=== PATIENT | female | born 1960 | race Caucasian/White ===

== ENCOUNTER → 2019-01-29 | Outpatient (CLI) | payer OTHER ==
--- NOTE | 2019-01-29 11:52 | BD ---
EXAMINATION TYPE: Axial Bone Density DATE OF EXAM: 01/29/2019 COMPARISON: 2016 CLINICAL HISTORY: disorder of bone Height: 5' Weight: 109 FRAX RISK QUESTIONS: Secondary Osteoporosis: RISK FACTORS HISTORY OF: Diet low in dairy products/other sources of calcium: y Postmenopausal woman: y MEDICATIONS: Additional Medications: blood pressure Additional History: EXAM MEASUREMENTS: Bone mineral densitometry was performed using the [employer] System. Bone mineral density as measured about the Lumbar spine is: ----- L1-L4(G/cm2): 1.116 T Score Values are as follows: ----- L2: -0.8 ----- L3: -0.5 ----- L4: -0.5 ----- L1-L4:-0.5 Bone mineral density has: Decreased -7.7since study of: 07/05/2016 Bone mineral density about the R hip (g/cm2): 0.843 Bone mineral density about the L hip (g/cm2): 0.864 T Score values are as follows: -----R Neck: -1.4 -----L Neck: -1.3 -----R Total: -0.3 -----L Total: -0.3 Bone mineral density has: Decreased -0.2since studyof: 07/05/2016 IMPRESSION: Osteopenia (T Score between -2.5 and -1). There is slightly increased risk of fracture and the patient may be considered for treatment. Re-Screen 2-5 years. NOTE: T-SCORE=SD OF THE YOUNG ADULT MEAN.
--- NOTE | 2019-01-31 11:14 | MM ---
Reason for exam: screening (asymptomatic). Last mammogram was performed 1 year and 5 months ago. History: Patient is postmenopausal. Physical Findings: A clinical breast exam by your physician is recommended on an annual basis and results should be correlated with mammographic findings. MG Screening Mammo w CAD Bilateral CC and MLO view(s) were taken. Prior study comparison: August 18, 2017, bilateral MG screening mammo w CAD. July 05, 2016, bilateral MG screening mammo w CAD. The breast tissue is heterogeneously dense. This may lower the sensitivity of mammography. No suspicious abnormality. No significant changes when compared with prior studies. ASSESSMENT: Negative, BI-RAD 1 RECOMMENDATION: Routine screening mammogram of both breasts in 1 year.
== END | disposition home or self-care (01) ==
LOC: RADBDWWP 10:24
PROVIDERS: ATTEND Obstetrics & Gynecology
DX: Z12.31 Encounter for screening mammogram for malignant neoplasm of breast (principal); M85.851 Other specified disorders of bone density and structure, right thigh; M85.852 Other specified disorders of bone density and structure, left thigh
CPT/HCPCS: 77067; 77080

== ENCOUNTER → 2021-06-17 | Outpatient (CLI) | payer OTHER ==
--- NOTE | 2021-06-18 08:55 | BD ---
EXAMINATION TYPE: Axial Bone Density DATE OF EXAM: 06/17/2021 COMPARISON: 01/29/2019 CLINICAL HISTORY: 61-year-old female with disorder of bone, M85.80 Height: 60 IN Weight: 107 LBS RISK FACTORS HISTORY OF: Active: YES Diet low in dairy products/other sources of calcium: YES Postmenopausal woman: AGE 49 MEDICATIONS: Additional Medications: CALCIUM, VIT D, BLOOD PRESSURE MEDS EXAM MEASUREMENTS: Bone mineral densitometry was performed using the [employer] System. Bone mineral density as measured about the Lumbar spine is: ----- L1-L4(G/cm2): 1.095 T Score Values are as follows: ----- L2: -1.3 ----- L3: -0.7 ----- L4: -0.5 ----- L1-L4: -0.7 Bone mineral density has: Decreased -2.3% since study of: 01/29/2019 Bone mineral density about the R hip (g/cm2): 0.833 Bone mineral density about the L hip (g/cm2): 0.855 T Score values are as follows: -----R Neck: -1.5 -----L Neck: -1.3 -----R Total: -0.6 -----L Total: -0.6 Bone mineral density has: Decreased -3.5% since study of: 01/29/2019 IMPRESSION: Osteopenia (T Score between -2.5 and -1). There is slightly increased risk of fracture and the patient may be considered for treatment. Re-Screen 2-5 years. NOTE: T-SCORE=SD OF THE YOUNG ADULT MEAN.
== END | disposition home or self-care (01) ==
LOC: RADBDWWP 09:14
PROVIDERS: ATTEND Obstetrics & Gynecology
DX: Z13.820 Encounter for screening for osteoporosis (principal); M85.89 Other specified disorders of bone density and structure, multiple sites
CPT/HCPCS: 77080

== ENCOUNTER → 2021-06-30 | Outpatient (CLI) | payer OTHER ==
--- NOTE | 2021-07-01 09:10 | MM ---
Reason for exam: screening (asymptomatic). Last mammogram was performed 2 years and 5 months ago. History: Patient is postmenopausal. Physical Findings: A clinical breast exam by your physician is recommended on an annual basis and results should be correlated with mammographic findings. MG Screening Mammo w CAD Bilateral CC and MLO view(s) were taken. Prior study comparison: January 29, 2019, bilateral MG screening mammo w CAD. August 18, 2017, bilateral MG screening mammo w CAD. The breast tissue is heterogeneously dense. This may lower the sensitivity of mammography. There is no discrete abnormality. No significant changes when compared with prior studies. ASSESSMENT: Negative, BI-RAD 1 RECOMMENDATION: Routine screening mammogram of both breasts in 1 year.
== END | disposition home or self-care (01) ==
LOC: RADMAMWWP 07:16
PROVIDERS: ATTEND Family Medicine
DX: Z12.31 Encounter for screening mammogram for malignant neoplasm of breast (principal); Z78.0 Asymptomatic menopausal state
CPT/HCPCS: 77067

== ENCOUNTER → 2023-03-02 | Outpatient (CLI) | payer OTHER ==
--- NOTE | 2023-03-02 11:36 | XR ---
EXAMINATION TYPE: XR shoulder complete LT DATE OF EXAM: 03/02/2023 COMPARISON: NONE HISTORY: Pain TECHNIQUE: Shoulder examined in 3 projections. FINDINGS: The humeral head articulates with the glenoid. The acromio-clavicular junction is normal. No acute fractures or dislocations are evident. A follow up study can be performed 7-10 days from acute trauma for continued pain. MRI can be perfor med if soft tissue evaluation would be of benefit. IMPRESSION: 1. No acute osseous shoulder abnormality.
== END | disposition home or self-care (01) ==
LOC: RADXRMAIN 09:11
PROVIDERS: ATTEND Family Medicine
DX: S46.912A Strain of unspecified muscle, fascia and tendon at shoulder and upper arm level, left arm, initial encounter (principal); X58.XXXA Exposure to other specified factors, initial encounter

== ENCOUNTER 2023-03-09 06:24 | Observation (INO) | payer OTHER ==
[2023-03-09 06:32] VITALS: TEMP 97.6
[2023-03-09] MEDS ORDERED: ASPIRIN 81 MG PO STA (06:46)
--- NOTE | 2023-03-09 06:49 | ED ---
Chest Pain HPI - General Chief Complaint: Chest Pain Stated Complaint: arm pain,chest pain Time Seen by Provider: 03/09/23 06:34 Source: patient, RN notes reviewed Mode of arrival: ambulatory Limitations: no limitations - History of Present Illness Initial Comments: 63-year-old female presents emergency Department with chief complaint of chest pain. Patient states that she started having chest discomfort this morning substernal pain and left arm discomfort. She does admit that she had a fall while back and states that she's been having shoulder pain but this pain or arm is different. Patient is again radiates up. She does have a history of hypertension her blood pressures been higher than usual. Patient denies any other cardiac disease including hyperlipidemia and diabetes denies being a smoker no prior stress test or heart cath. Patient has no abdominal complaints or recent cough or cold-like symptoms. - Related Data Home Medications Medication Instructions Recorded Confirmed Aspirin/Acetaminophen/Caffeine 1 each PO Q6H 01/06/16 01/06/16 [Excedrin Extra Strength Caplet] Cholecalciferol (Vitamin D3) 5,000 units PO QAM 01/06/16 01/06/16 [Vitamin D3] Flaxseed [Flaxseed Oil] 1,300 mg PO QAM 01/06/16 01/06/16 Irbesartan [Avapro] 150 mg PO QAM 01/06/16 01/09/16 Multivitamins, Thera [Multivitamin] 1 tab PO DAILY 01/06/16 01/06/16 Allergies Allergy/AdvReac Type Severity Reaction Status Date / Time No Known Allergies Allergy Verified 01/06/16 14:27 Review of Systems ROS Statement: Those systems with pertinent positive or pertinent negative responses have been documented in the HPI. ROS Other: All systems not noted in ROS Statement are negative. EKG Findings - EKG Comments: EKG Findings:: EKG performed at 6:39 sinus rhythm rate of 75 NM 156 QRS 84 QT/QTC 381/410 - EKG Results: EKG: interpreted by WOJCIECH Past Medical History Past Medical History: Hypertension History of Any Multi-Drug Resistant Organisms: None Reported Past Surgical History: No Surgical Hx Reported Past Anesthesia/Blood Transfusion Reactions: No Reported Reaction Additional Past Anesthesia/Blood Transfusion Reaction / Comment(s): no hx of anesthesia or blood transfusions Past Psychological History: No Psychological Hx Reported Smoking Status: Former smoker Past Alcohol Use History: Rare Past Drug Use History: None Reported - Past Family History Mother Family Medical History: Hypertension Father Family Medical History: Cancer Additional Family Medical History / Comment(s): ca: esophagus General Exam Limitations: no limitations General appearance: alert, in no apparent distress Head exam: Present: atraumatic, normocephalic, normal inspection Eye exam: Present: normal appearance, PERRL, EOMI. Absent: scleral icterus, conjunctival injection, periorbital swelling Neck exam: Present: normal inspection, full ROM. Absent: tenderness, meningismus, lymphadenopathy Respiratory exam: Present: normal lung sounds bilaterally. Absent: respiratory distress, wheezes, rales, rhonchi, stridor Cardiovascular Exam: Present: regular rate, normal rhythm, normal heart sounds. Absent: systolic murmur, diastolic murmur, rubs, gallop, clicks GI/Abdominal exam: Present: soft, normal bowel sounds. Absent: distended, tenderness, guarding, rebound, rigid Extremities exam: Present: full ROM. Absent: tenderness Neurological exam: Present: alert Skin exam: Present: warm, dry, intact, normal color. Absent: rash Course Vital Signs 03/09/23 06:28 Temperature 97.6 F Pulse Rate 83 Respiratory 18 Rate Blood Pressure 188/94 O2 Sat by Pulse 98 Oximetry Chest Pain MDM - MDM Was pt. sent in by a medical professional or institution (JETHRO Beltre, AQUATICS DIRECTOR, urgent care, hospital, or prison...) When possible be specific @ -No Did you speak to anyone other than the patient for history (EMS, parent, family, police, friend...)? What history was obtained from this source @ -No Did you review nursing and triage notes (agree or disagree)? Why? @ -I reviewed and agree with nursing and triage notes Were old charts reviewed (outside hosp., previous admission, EMS record, old EKG, old radiological studies, urgent care reports/EKG's, prison records)? Report findings @ -No old charts were reviewed Differential Diagnosis (chest pain, altered mental status, abdominal pain women, abdominal pain men, vaginal bleeding, weakness, fever, dyspnea, syncope, headache, dizziness, GI bleed, back pain, seizure, CVA, palpatations, mental health, musculoskeletal)? @ -Differential Chest Pain: Stable Angina, Unstable Angina, STEMI, NSTEMI Aortic Dissection, Pneumothorax, Musculoskeletal, Esophageal Spasm GERD, Cholecystitis, Pancreatitis, Zoster, this is not meant to be an all-inclusive list. ] EKG interpreted by me (3pts min.). @ -As above X-rays interpreted by me (1pt min.). @ -Chest x-ray shows no acute cardiopulmonary process CT interpreted by me (1pt min.). @ -None done U/S interpreted by me (1pt. min.). @ -None done What testing was considered but not performed or refused? (CT, X-rays, U/S, labs)? Why? @ -None What meds were considered but not given or refused? Why? @ -None Did you discuss the management of the patient with other professionals (professionals i.e. , PA, AQUATICS DIRECTOR, lab, RT, psych nurse, social and political studies professor, plywood stock grader, teacher, campus safety officer, case management manager)? Give summary @ -Hospitalist for admission given patient's symptoms of chest pain for further workup and evaluation along with cardiology Was smoking cessation discussed for >3mins.? @ -No Was critical care preformed (if so, how long)? @ -No Were there social determinants of health that impacted care today? How? (Homelessness, low income, unemployed, alcoholism, drug addiction, transportation, low edu. Level, literacy, decrease access to med. care, alf, rehab)? @ -No Was there de-escalation of care discussed even if they declined (Discuss DNR or withdrawal of care, Hospice)? DNR status @ -No What co-morbidities impacted this encounter? (DM, HTN, Smoking, COPD, CAD, Cancer, CVA, ARF, Chemo, Hep., AIDS, mental health diagnosis, sleep apnea, morbid obesity)? @ -Hypertension Was patient admitted / discharged? Hospital course, mention meds given and route, prescriptions, significant lab abnormalities, going to OR and other pertinent info. @ -Admitted patient has substernal chest pain with multiple risk factors with hypertension, history. Patient will be admitted for cardiac rule out including echocardiogram Undiagnosed new problem with uncertain prognosis? @ -No Drug Therapy requiring intensive monitoring for toxicity (Heparin, Nitro, Insulin, Cardizem)? @ -No Were any procedures done? @ -No Diagnosis/symptom? @ -Chest pain Acute, or Chronic, or Acute on Chronic? @ -Acute Uncomplicated (without systemic symptoms) or Complicated (systemic symptoms)? @ -Uncomplicated Side effects of treatment? @ -No Exacerbation, Progression, or Severe Exacerbation? @ -No Poses a threat to life or bodily function? How? (Chest pain, USA, NM, pneumonia, PE, COPD, DKA, ARF, appy, cholecystitis, CVA, Diverticulitis, Homicidal, Suicidal, threat to staff... and all critical care pts) @ -[Yes patient has chest pain at risk for cardiac arrest Disposition Clinical Impression: Chest pain Disposition: ADMITTED IP TO THIS HOSP Condition: Fair Referrals: Vincenzo Underwood DO [Primary Care Provider] - 1-2 days Time of Disposition: 07:55
[2023-03-09 07:07] LABS: Basophils % (A) 0 %; Eosinophils # (A) 0.2 k/uL (0-0.7); Eosinophils % (A) 2 %; HCT 41.4 % (34.0-46.0); HGB 14.1 gm/dL (11.4-16.0); Lymphocytes # (A) 1.5 k/uL (1.0-4.8); Lymphocytes % (A) 14 %; MCH 33.1 pg (25.0-35.0); MCV 97.2 fL (80.0-100.0); Mean Platelet Volume 7.8; Monocytes # (A) 0.5 k/uL (0-1.0); Monocytes % (A) 4 %; Neutrophils # (A) 8.2 k/uL (1.3-7.7); Neutrophils % (A) 78 %; Platelet Count 291 k/uL (150-450); RBC 4.26 m/uL (3.80-5.40); RDW 12.4 % (11.5-15.5); WBC 10.6 k/uL (3.8-10.6)
[2023-03-09 07:18] LABS: ALT 26 U/L (4-34); AST 32 U/L (14-36); African American GFR (CKD) >90 (>60 ml/min/1.73 sqM); Albumin 4.7 g/dL (3.5-5.0); Alkaline Phosphatase 79 U/L (38-126); Anion Gap 10 mmol/L; Blood Urea Nitrogen 19 mg/dL (7-17); Calcium 9.7 mg/dL (8.4-10.2); Carbon Dioxide 29 mmol/L (22-30); Chloride 102 mmol/L (98-107); Glucose 116 mg/dL (74-99); Magnesium 1.9 mg/dL (1.6-2.3); Non-African American GFR(CKD) >90 (>60 ml/min/1.73 sqM); Potassium 4.1 mmol/L (3.5-5.1); Sodium 141 mmol/L (137-145); Total Bilirubin 0.3 mg/dL (0.2-1.3); Total Protein 7.6 g/dL (6.3-8.2)
[2023-03-09 07:29] LABS: INR 0.9 (<1.2)
--- NOTE | 2023-03-09 07:30 | XR ---
EXAMINATION TYPE: XR chest 2V DATE OF EXAM: 03/09/2023 7:23 AM COMPARISON: Chest radiographs from none TECHNIQUE: XR chest 2V Frontal and lateral views of the chest. CLINICAL INDICATION:Female, 63 years old with history of Chest Pain; FINDINGS: Lungs/Pleura: There is no evidence of pleural effusion, focal consolidation, or pneumothorax. Pulmonary vascularity: Unremarkable. Heart/mediastinum: Cardiomediastinal silhouette is unremarkable. Musculoskeletal: No acute osseous pathology. IMPRESSION: No acute cardiopulmonary disease/process.
[2023-03-09] MEDS ORDERED: NITROGLYCERIN SL TABS 0.4 MG TAB SUBLINGUAL PRN (08:08)
[2023-03-09] MEDS ORDERED: CHOLECALCIFEROL 125 MCG (5000 IU) TABLET PO SCH (09:00)
[2023-03-09] MEDS ORDERED: ASCORBIC ACID 500 MG TAB PO SCH (09:00)
[2023-03-09] MEDS ORDERED: MULTIVITAMINS, THERA 1 EACH TAB PO SCH (09:00)
[2023-03-09] MEDS: lisinopriL 10 MG TAB PO SCH ×2 (09:04→09:10)
[2023-03-09] MEDS ORDERED: lisinopriL 10 MG TAB PO STA (10:58)
--- NOTE | 2023-03-09 12:37 | CA ---
Transthoracic Echo Report Name: Mary Ellen Levy Age: 63 Gender: F : 1960 Exam Date: 03/09/2023 09:45 Exam Location: [facility] Ht (in): 60 Wt (lb): 104 Ordering Physician: Jeff Ball Attending/Referring Phys: [id number], [employer] President Ibeth Hickman RDCS Procedure CPT: Indications: Chest Pain Cardiac Hx: Technical Quality: Good Contrast 1: Total Dose (mL): Contrast 2: Total Dose (mL): MEASUREMENTS (Male / Female) Normal Values 2D ECHO LV Diastolic Diameter PLAX 3.7 cm 4.2 - 5.9 / 3.9 - 5.3 cm LV Systolic Diameter PLAX 2.6 cm IVS Diastolic Thickness 0.9 cm 0.6 - 1.0 / 0.6 - 0.9 cm LVPW Diastolic Thickness 0.8 cm 0.6 - 1.0 / 0.6 - 0.9 cm LV Relative Wall Thickness 0.5 RV Internal Dim ED PLAX 2.3 cm LA Systolic Diameter LX 2.7 cm 3.0 - 4.0 / 2.7 - 3.8 cm LV Diastolic Volume MOD 4C 58.4 cm??? LV Systolic Volume MOD 4C 27.7 cm??? LV Ejection Fraction MOD 4C 52.5 % LV Diastolic Length 4C 7.2 cm LV Systolic Length 4C 5.6 cm LV Diastolic Volume MOD 2C 43.3 cm??? LV Systolic Volume MOD 2C 11.7 cm??? LV Ejection Fraction MOD 2C 73.0 % LV Diastolic Length 2C 6.7 cm LV Systolic Length 2C 5.0 cm LA Volume 28.8 cm??? 18 - 58 / 22 - 52 cm??? M-MODE Aortic Root Diameter MM 2.7 cm MV E Point Septal Separation 0.2 cm AV Cusp Separation MM 1.7 cm DOPPLER AV Peak Velocity 151.3 cm/s AV Peak Gradient 9.2 mmHg MV Area PHT 2.7 cm??? Mitral E Point Velocity 100.9 cm/s Mitral A Point Velocity 90.7 cm/s Mitral E to A Ratio 1.1 MV Deceleration Time 284.8 ms MV E' Velocity 9.1 cm/s Mitral E to MV E' Ratio 11.1 TR Peak Velocity 266.8 cm/s TR Peak Gradient 28.5 mmHg Right Ventricular Systolic Press 33.5 mmHg FINDINGS Left Ventricle Left ventricular ejection fraction is estimated at 55-60 %. Small left ventricular cavity. Left ventricular wall thickness normal. No obvious regional wall motion abnormalities. Right Ventricle Normal right ventricular size and function. Right ventricular systolic pressure is borderline . Right ventricular systolic pressure estimated at 34 mm hg. Right Atrium Normal right atrial size. Left Atrium Normal left atrial size. Mitral Valve Structurally normal mitral valve. No mitral stenosis, regurgitation or prolapse. Aortic Valve Trileaflet aortic valve. No aortic valve stenosis or regurgitation. Tricuspid Valve Structurally normal tricuspid valve. Trace to mild tricuspid regurgitation. Pulmonic Valve Structurally normal pulmonic valve. No pulmonic regurgitation. Pericardium Normal pericardium. No pericardial effusion. Aorta Normal size aortic root and proximal ascending aorta. CONCLUSIONS Normal LV size and systolic function. No significant abnormality on the Doppler exam. No pericardial effusion Previewed by: Dr. Nery Cervantes MD (Electronically Signed) Final Date: 09 Mar 2023 12:36
--- NOTE | 2023-03-09 13:35 | P.CRDCN ---
History of Present Illness Consult date: 03/09/23 Consult reason: chest pain History of present illness: History of present illness: This is a 63-year-old female patient with past medical history of hypertension, remote history of tobacco use. We have been asked to evaluate the patient for chest pain. Patient presented to the emergency center due to chest pain that lasted for a second or 2. She recently had xrays for shoulder/arm pain. Initial blood pressure 188/94, currently 159/87. Patient is seen today in the emergency center waiting for bed on the observation unit. 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 EKG sinus rhythm with no acute ST changes Chest x-ray: No acute process CBC unremarkable. D-dimer 0.17. Electrolytes normal. BUN 19 and creatinine 0.71. Blood sugar 116. Troponin negative 2. Magnesium 1.9, liver function tests are normal. ProBNP 75. Echocardiogram reveals EF 55-60%. No significant abnormality on Doppler exam. No pericardial effusion. Home cardiac medications: Lisinopril 10 mg daily Review Of Systems: At the time of my evaluation: Constitutional: No fever, no chills. No weakness, fatigue or lethargy. EENT: No headache. No dizziness. Lungs: No shortness of breath, cough, no sputum production. No wheezing. Cardiovascular: No chest pain, no lower extremity edema. No palpitations. No paroxysmal nocturnal dyspnea. No orthopnea. No lightheadedness or dizziness. No syncopal episodes. Abdominal: No abdominal pain. No nausea, vomiting. No diarrhea. Musculoskeletal: No myalgias. Neurologic: No aphasia. No facial droop. No change in mentation. No head injury. No headache. Physical examination: Gen: This is a 63-year-old female resting on the ER stretcher and appears comfortable. VS: reviewed HEENT: Head is atraumatic, normocephalic. Pupils equal, round. Sclerae is anicteric. NECK: Supple. No JVD. LUNGS: Clear to auscultation. No wheezes or rhonchi. No intercostal retractions. HEART: Regular rate and rhythm. No murmur. ABDOMEN: Soft No tenderness. EXTREMITIES: No pedal edema. No calf tenderness. NEUROLOGICAL: Patient is awake, alert and oriented x3. Assessment: Chest pain, acute coronary syndrome ruled out Hypertension, uncontrolled Plan: Continue lisinopril and increase to 20 g daily Patient is cleared for discharge home today in a follow-up with her PCP for outpatient stress testing. Thank you kindly for this consultation. Nurse practitioner note has been reviewed, I agree with documented findings and plan of care. Patient was seen and examined. Past Medical History Past Medical History: Hypertension History of Any Multi-Drug Resistant Organisms: None Reported Past Surgical History: No Surgical Hx Reported Past Anesthesia/Blood Transfusion Reactions: No Reported Reaction Additional Past Anesthesia/Blood Transfusion Reaction / Comment(s): no hx of anesthesia or blood transfusions Past Psychological History: No Psychological Hx Reported Smoking Status: Former smoker Past Alcohol Use History: Rare Past Drug Use History: None Reported - Past Family History Mother Family Medical History: Hypertension Father Family Medical History: Cancer Additional Family Medical History / Comment(s): ca: esophagus Medications and Allergies Home Medications Medication Instructions Recorded Confirmed Type Multivitamins, Thera [Multivitamin] 1 tab PO PC-BRKFST 01/06/16 03/09/23 History Ascorbic Acid [Vitamin C] 500 mg PO PC-BRKFST 03/09/23 03/09/23 History Cholecalciferol [Vitamin D3 (125 125 mcg PO PC-BRKFST 03/09/23 03/09/23 History Mcg = 5000 Iu)] Vitamin K2 100 mcg PO PC-BRKFST 03/09/23 03/09/23 History cod liver oiL [Cod Liver Oil] 1 cap PO PC-BRKFST 03/09/23 03/09/23 History lisinopriL [Prinivil] 10 mg PO DAILY 03/09/23 03/09/23 History Allergies Allergy/AdvReac Type Severity Reaction Status Date / Time No Known Allergies Allergy Verified 03/09/23 08:21 Physical Exam Vitals: Vital Signs Temp Pulse Resp BP Pulse Ox 03/09/23 09:08 77 18 159/87 100 03/09/23 06:28 97.6 F 83 18 188/94 98 Intake and Output 03/08/23 03/09/23 03/09/23 22:59 06:59 14:59 Other: Weight 47.174 kg Results 03/09/23 06:55 03/09/23 06:55 Cardiac Enzymes 03/09/23 03/09/23 03/09/23 Range/Units 06:55 06:55 08:58 AST 32 (14-36) U/L Troponin I <0.012 <0.012 (0.000-0.034) ng/mL Coagulation 03/09/23 Range/Units 06:55 PT 10.0 (9.0-12.0) sec APTT 25.0 (22.0-30.0) sec CBC 03/09/23 Range/Units 06:55 WBC 10.6 (3.8-10.6) k/uL RBC 4.26 (3.80-5.40) m/uL Hgb 14.1 (11.4-16.0) gm/dL Hct 41.4 (34.0-46.0) % Plt Count 291 (150-450) k/uL Comprehensive Metabolic Panel 03/09/23 Range/Units 06:55 Sodium 141 (137-145) mmol/L Potassium 4.1 (3.5-5.1) mmol/L Chloride 102 (98-107) mmol/L Carbon Dioxide 29 (22-30) mmol/L BUN 19 H (7-17) mg/dL Creatinine 0.71 (0.52-1.04) mg/dL Glucose 116 H (74-99) mg/dL Calcium 9.7 (8.4-10.2) mg/dL AST 32 (14-36) U/L ALT 26 (4-34) U/L Alkaline Phosphatase 79 (38-126) U/L Total Protein 7.6 (6.3-8.2) g/dL Albumin 4.7 (3.5-5.0) g/dL Current Medications Generic Name Dose Route Start Last Admin Trade Name Prudence PRN Reason Stop Dose Admin Ascorbic Acid 500 mg 03/09/23 09:00 03/09/23 09:04 Ascorbic Acid 500 Mg Tab PO 500 mg PC-BRKFST SIMBA Administration Aspirin 325 mg 03/10/23 09:00 Aspirin 325 Mg Tab PO DAILY [facility] Cholecalciferol 125 mcg 03/09/23 09:00 03/09/23 09:04 Cholecalciferol 125 Mcg (5000 Iu) Tablet PO 125 mcg PC-BRKFST SIMBA Administration Lisinopril 10 mg 03/09/23 09:00 03/09/23 09:10 Lisinopril 10 Mg Tab PO Not Given DAILY [facility] Multivitamins 1 each 03/09/23 09:00 03/09/23 09:04 Multivitamins, Thera 1 Each Tab PO 1 each PC-BRKFST SIMBA Administration Nitroglycerin 0.4 mg 03/09/23 08:08 Nitroglycerin Sl Tabs 0.4 Mg Tab SUBLINGUAL Q5M PRN Chest Pain Intake and Output 03/08/23 03/09/23 03/09/23 22:59 06:59 14:59 Other: Weight 47.174 kg 03/09/23 06:55 03/09/23 06:55
--- NOTE | 2023-03-09 13:36 | P.HPIM ---
History of Present Illness 63-year-old female came to the emergency department with complaints of chest pain which lasts only a few seconds. Patient denied any lightheadedness denied any radiation of the chest pain lightheadedness shortness of breath chest pain not associated with food nonpleuritic in nature d-dimer is negative chest x-ray did not show any significant abnormality EKG within normal limits. This of troponins were negative. Cardiology evaluated the patient as well patient chest pain is noncardiac. Patient has a unrelated pain in bilateral upper extremities which are musculoskeletal in nature which is being evaluated as an outpatient p atient had these bilateral upper limbs musculoskeletal problems for over an year. Denied any personal history or family history of premature coronary artery disease REVIEW OF SYSTEMS: CONSTITUTIONAL: No fever, no malaise, no fatigue. HEENT: No recent visual problems or hearing problems. Denied any sore throat. CARDIOVASCULAR: No orthopnea, PND, no palpitations, no syncope. PULMONARY: No shortness of breath, no cough, no hemoptysis. GASTROINTESTINAL: No diarrhea, no nausea, no vomiting, no abdominal pain. NEUROLOGICAL: No headaches, no weakness, no numbness. HEMATOLOGICAL: Denies any bleeding or petechiae. GENITOURINARY: Denies any burning micturition, frequency, or urgency. MUSCULOSKELETAL/RHEUMATOLOGICAL: Denies any joint pain, swelling, or any muscle pain. ENDOCRINE: Denies any polyuria or polydipsia. The rest of the 14-point review of systems is negative. PHYSICAL EXAMINATION: GENERAL: The patient is alert and oriented x3, not in any acute distress. Well developed, well nourished. HEENT: Pupils are round and equally reacting to light. EOMI. No scleral icterus. No conjunctival pallor. Normocephalic, atraumatic. No pharyngeal erythema. No thyromegaly. CARDIOVASCULAR: S1 and S2 present. No murmurs, rubs, or gallops. PULMONARY: Chest is clear to auscultation, no wheezing or crackles. ABDOMEN: Soft, nontender, nondistended, normoactive bowel sounds. No palpable organomegaly. MUSCULOSKELETAL: No joint swelling or deformity. EXTREMITIES: No cyanosis, clubbing, or pedal edema. NEUROLOGICAL: Gross neurological examination did not reveal any focal deficits. SKIN: No rashes. Assessment and plan -Chest pain rule out acute coronary syndromes etiology is not clear what appears to be noncardiac chest pain. Patient will be discharged today possible ou tpatient stress test -Hypertension continue lisinopril Patient will be discharged today. Past Medical History Past Medical History: Hypertension History of Any Multi-Drug Resistant Organisms: None Reported Past Surgical History: No Surgical Hx Reported Past Anesthesia/Blood Transfusion Reactions: No Reported Reaction Additional Past Anesthesia/Blood Transfusion Reaction / Comment(s): no hx of anesthesia or blood transfusions Past Psychological History: No Psychological Hx Reported Smoking Status: Former smoker Past Alcohol Use History: Rare Past Drug Use History: None Reported - Past Family History Mother Family Medical History: Hypertension Father Family Medical History: Cancer Additional Family Medical History / Comment(s): ca: esophagus Medications and Allergies Home Medications Medication Instructions Recorded Confirmed Type Multivitamins, Thera [Multivitamin] 1 tab PO PC-BRKFST 01/06/16 03/09/23 History Ascorbic Acid [Vitamin C] 500 mg PO PC-BRKFST 03/09/23 03/09/23 History Cholecalciferol [Vitamin D3 (125 125 mcg PO PC-BRKFST 03/09/23 03/09/23 History Mcg = 5000 Iu)] Vitamin K2 100 mcg PO PC-BRKFST 03/09/23 03/09/23 History cod liver oiL [Cod Liver Oil] 1 cap PO PC-BRKFST 03/09/23 03/09/23 History lisinopriL [Prinivil] 10 mg PO DAILY 03/09/23 03/09/23 History Allergies Allergy/AdvReac Type Severity Reaction Status Date / Time No Known Allergies Allergy Verified 03/09/23 08:21 Physical Exam Vitals: Vital Signs Temp Pulse Resp BP Pulse Ox 03/09/23 11:55 75 16 168/91 99 03/09/23 09:08 77 18 159/87 100 03/09/23 06:28 97.6 F 83 18 188/94 98 Intake and Output 03/08/23 03/09/23 03/09/23 22:59 06:59 14:59 Other: Weight 47.174 kg Results CBC & Chem 7: 03/09/23 06:55 03/09/23 06:55 Labs: Abnormal Lab Results - Last 24 Hours (Table) 03/09/23 03/09/23 Range/Units 06:55 06:55 Neutrophils # 8.2 H (1.3-7.7) k/uL BUN 19 H (7-17) mg/dL Glucose 116 H (74-99) mg/dL
--- NOTE | 2023-03-09 13:37 | P.DS ---
Providers Date of admission: 03/09/23 08:15 Attending physician: Praveen Mahmood MD Consults: 03/09/23 08:08 Consult Physician Urgent Consulting Provider: Homero Schmitt Consult Reason/Comments: chest pain Do you want consulting provider notified?: Yes Primary care physician: Vincenzo Underwood [facility] Course: Please refer to history of present illness for further details and patient is being discharged today with increased dose of lisinopril to 20 mg per uncontrolled hypertension and outpatient stress test Patient Condition at Discharge: Fair Plan - Discharge Summary New Discharge Prescriptions: New lisinopriL [Zestril] 20 mg PO DAILY #30 tab Continue Multivitamins, Thera [Multivitamin (formulary)] 1 tab PO PC-BRKFST Cholecalciferol [Vitamin D3 (125 Mcg = 5000 Iu)] 125 mcg PO PC-BRKFST cod liver oiL [Cod Liver Oil] 1 cap PO PC-BRKFST Vitamin K2 100 mcg PO PC-BRKFST Ascorbic Acid [Vitamin C] 500 mg PO PC-BRKFST Discontinued lisinopriL [Prinivil] 10 mg PO DAILY Discharge Medication List Multivitamins, Thera [Multivitamin (formulary)] 1 tab PO PC-BRKFST 01/06/16 [History] Ascorbic Acid [Vitamin C] 500 mg PO PC-BRKFST 03/09/23 [History] Cholecalciferol [Vitamin D3 (125 Mcg = 5000 Iu)] 125 mcg PO PC-BRKFST 03/09/23 [History] Vitamin K2 100 mcg PO PC-BRKFST 03/09/23 [History] cod liver oiL [Cod Liver Oil] 1 cap PO PC-BRKFST 03/09/23 [History] lisinopriL [Zestril] 20 mg PO DAILY #30 tab 03/09/23 [Rx] Follow up Appointment(s)/Referral(s): Vincenzo Underwood DO [Primary Care Provider] - 3 Days
[2023-03-09 14:21] VITALS: BP 162/87; PULSE 78; RESP 18
[2023-03-10] MEDS ORDERED: ASPIRIN 325 MG TAB PO SCH (09:00)
[2023-03-10] MEDS ORDERED: lisinopriL 20 MG TAB PO SCH (09:00)
== END 2023-03-09 14:26 | disposition home or self-care (01) ==
LOC: EC 06:24 → 6NMEDSUR 08:15
PROVIDERS: ADMIT Internal Medicine; ATTEND Internal Medicine
DX: R07.89 Other chest pain (principal); I10 Essential (primary) hypertension; I07.1 Rheumatic tricuspid insufficiency; Z79.82 Long term (current) use of aspirin; Z79.899 Other long term (current) drug therapy; Z87.891 Personal history of nicotine dependence; Z82.49 Family history of ischemic heart disease and other diseases of the circulatory system; Z80.0 Family history of malignant neoplasm of digestive organs
CPT/HCPCS: 36415; 71046; 80053; 83735; 83880; 84484; 85025; 85379; 85610; 85730; 93005; 93306; 99285

== ENCOUNTER → 2023-07-11 | Outpatient (CLI) | payer OTHER ==
--- NOTE | 2023-07-11 09:45 | BD ---
EXAMINATION TYPE: Axial Bone Density DATE OF EXAM: 07/11/2023 CLINICAL HISTORY: 63 years old Female. ICD-10 CODE: M85.88 OSTEOPENIA Height: 59.7 Weight: 101 FRAX RISK QUESTIONS: nothing to note here. RISK FACTORS HISTORY OF: Postmenopausal woman: yes, at 47 yrs Lost more than 2 inches in height since high school: Hyperparathyroidism: no Adrenal Insufficiency: no MEDICATIONS: Additional Medications: bp meds, vit d with calcium, K7 Additional History: hypertension, EXAM MEASUREMENTS: Bone mineral densitometry was performed using the [employer] System. Bone mineral density as measured about the Lumbar spine is: ----- L1-L4(G/cm2): 1.075 T Score Values are as follows: ----- L1: -1.0 ----- L2: -1.4 ----- L3: -0.7 ----- L4: -0.8 ----- L1-L4: -0.9 Z Score Values are as follows: ----- L1: 1.0 ----- L2: 0.6 ----- L3: 1.3 ----- L4: 1.3 ----- L1-L4: 1.1 Bone mineral density has: Decreased -1.8% since study of: 06.17.2021 Bone mineral density about the R hip (g/cm2): 0.900 Bone mineral density about the L hip (g/cm2): 0.913 T Score values are as follows: -----R Neck: -1.5 -----L Neck: -1.4 -----R Total: -0.9 -----L Total: -0.8 Z Score values are as follows: -----R Neck: 0.2 -----L Neck: 0.4 -----R Total: 0.6 -----L Total: 0.7 Bone mineral density has: Decreased -2.9% since study of: 06.17.2021 FRAX%s: The graph provided illustrates a 7.6% chance for a major osteoporotic fx and a 0.8% chance fo r the hips probability for fx in 10 years time. IMPRESSION: Osteopenia (T Score between -2.5 and -1). There is slightly increased risk of fracture and the patient may be considered for treatment. Re-Screen 2-5 years. NOTE: T-SCORE=SD OF THE YOUNG ADULT MEAN.
--- NOTE | 2023-07-11 13:52 | MM ---
Reason for Exam: Screening (asymptomatic). Last mammogram was performed 2 year(s) and 0 month(s) ago. Patient History: Menarche at age 13. First Full-Term at age 24. Postmenopausal. Risk Values: Paulina 5 year model risk: 1.4%. NCI Lifetime model risk: 6.2%. Prior Study Comparison: 08/18/2017 Bilateral Screening Mammogram, [facility]. 01/29/2019 Bilateral Screening Mammogram, [facility]. 06/30/2021 Bilateral Screening Mammogram, [facility]. Tissue Density: The breast tissue is heterogeneously dense. This may lower the sensitivity of mammography. Findings: Analyzed By CAD. Asymmetry left breast posterior depth cc view 6.5 cm from nipple measuring 10 mm. Asymmetry right breast MLO view middle depth 5.2 centers within the pulmonary 6 mm. Overall Assessment: Incomplete: need additional imaging evaluation, BI-RAD 0 Management: Diagnostic Mammogram of both breasts. [facility] will attempt to contact patient to return for supplemental views and ultrasound if indicated. Patient should continue monthly self-breast exams. A clinical breast exam by your physician is recommended on an annual basis. This exam should not preclude additional follow-up of suspicious palpable abnormalities. Note on Paulina scores and lifetime risk: 1. A Paulina score greater than 3% is considered moderate risk. If this is the case, consider specialist referral to assess eligibility for a risk reducing agent. 2. If overall lifetime risk for the development of breast cancer is 20% or higher, the patient may qualify for future screening with alternating mammogram and breast MRI. Electronically signed and approved by: Jeo Rushing DO
== END ==
LOC: RADMAMWWP 08:26
PROVIDERS: ATTEND Obstetrics & Gynecology
DX: Z12.31 Encounter for screening mammogram for malignant neoplasm of breast (principal); M85.89 Other specified disorders of bone density and structure, multiple sites; Z78.0 Asymptomatic menopausal state
CPT/HCPCS: 77067; 77080

== ENCOUNTER → 2023-07-14 | Outpatient (CLI) | payer OTHER ==
--- NOTE | 2023-07-14 16:07 | USB ---
Reason for Exam: Additional evaluation requested from abnormal screening. Patient History: Menarche at age 13. First Full-Term at age 24. Postmenopausal. Risk Values: Paulina 5 year model risk: 1.4%. NCI Lifetime model risk: 6.2%. Technique: Method: Targeted. Prior Study Comparison: 01/29/2019 Bilateral Screening Mammogram, [facility]. 06/30/2021 Bilateral Screening Mammogram, [facility]. 07/11/2023 Bilateral MG screening mammo w CAD, [facility]. Findings: The upper outer quadrant of the right breast, the axilla of the right breast and the retroareolar of the right breast were scanned. No solid or cystic masses are identified.. Overall Assessment: Probably benign, BI-RAD 3 Management: Diagnostic Mammogram of the right breast in 6 months. A clinical breast exam by your physician is recommended on an annual basis and results should be correlated with mammographic findings. This exam should not preclude additional follow-up of suspicious palpable abnormalities. Results were given to the patient verbally at the time of exam. Electronically signed and approved by: Cartre Bradshaw M.D. Radiologis
--- NOTE | 2023-07-15 10:05 | MM ---
Reason for Exam: Additional evaluation requested from abnormal screening. Last screening mammogram was performed less than 1 month ago. Patient History: Menarche at age 13. First Full-Term at age 24. Postmenopausal. Risk Values: Paulina 5 year model risk: 1.4%. NCI Lifetime model risk: 6.2%. Prior Study Comparison: 06/30/2021 Bilateral Screening Mammogram, [facility]. 07/11/2023 Bilateral MG screening mammo w CAD, [facility]. Tissue Density: The breast tissue is heterogeneously dense. This may lower the sensitivity of mammography. Findings: Analyzed By CAD. No evidence for mass or distortion left breast. Persistent nodular density right breast for which ultrasound is recommended. Overall Assessment: Incomplete: need additional imaging evaluation, BI-RAD 0 Management: Diagnostic Breast Ultrasound of the right breast. . Results were given to the patient verbally at the time of exam. Patient should continue monthly self-breast exams. A clinical breast exam by your physician is recommended on an annual basis. This exam should not preclude additional follow-up of suspicious palpable abnormalities. Note on Paulina scores and lifetime risk: 1. A Paulina score greater than 3% is considered moderate risk. If this is the case, consider specialist referral to assess eligibility for a risk reducing agent. 2. If overall lifetime risk for the development of breast cancer is 20% or higher, the patient may qualify for future screening with alternating mammogram and breast MRI. Electronically signed and approved by: Carter Bradshaw M.D. Radiologis
== END | disposition home or self-care (01) ==
LOC: RADMAMWWP 14:12
PROVIDERS: ATTEND Obstetrics & Gynecology
DX: R92.8 Other abnormal and inconclusive findings on diagnostic imaging of breast (principal); Z78.0 Asymptomatic menopausal state
CPT/HCPCS: 77066; 76642; G0279; 77062

== ENCOUNTER 2023-08-01 06:38 | Day surgery (SDC) | payer OTHER ==
[2023-07-27 10:32] VITALS: BMI 20.2
[2023-08-01] MEDS ORDERED: LACTATED RINGERS 1,000 ML IV SCH (07:16)
[2023-08-01] MEDS ORDERED: LIDOCAINE 1% (10MG/ML) FOR IV START INTRADERMA PRN (07:16)
[2023-08-01] MEDS ORDERED: ONDANSETRON 4 MG/2 ML VIAL IVP PRN (07:16)
[2023-08-01 07:33] VITALS: RESP 16; TEMP 98
[2023-08-01] MEDS ORDERED: PROPOFOL 10 MG/ML 20 ML VIAL IV ONE (07:40)
[2023-08-01] MEDS ORDERED: LIDOCAINE 1% INJ 10MG/ML (20 ML MDV) ONE (07:40)
--- NOTE | 2023-08-01 07:40 | P.GSHP ---
History of Present Illness H&P Date: 08/01/23 CHIEF COMPLAINT: Colon screen HISTORY OF PRESENT ILLNESS: The patient is a 63-year-old female who presents for colon screen. Lower endoscopy was offered for further evaluation and management. PAST MEDICAL HISTORY: Please see list. PAST SURGICAL HISTORY: Please see list. MEDICATIONS: Please see list. ALLERGIES: Please see list. SOCIAL HISTORY: No illicit drug use FAMILY HISTORY: No reports of Crohn disease or ulcerative colitis. REVIEW OF ORGAN SYSTEMS: CONSTITUTIONAL: No reports of fevers or chills. PHYSICAL EXAM: VITAL SIGNS: Stable GENERAL: Well-developed pleasant in no acute distress. HEENT: No scleral icterus. Extraocular movements grossly intact. Moist buccal mucosa. NECK: Supple without lymphadenopathy. CHEST: Unlabored respirations. Equal bilateral excursions. CARDIOVASCULAR: Regular rate and rhythm. Distal 2+ pulses. ABDOMEN: Soft, nontender, nondistended. MUSCULOSKELETAL: No clubbing, cyanosis, or edema. ASSESSMENT: 1. Colon screen. PLAN: 1. Recommend proceeding with a lower endoscopy Past Medical History Past Medical History: Hypertension History of Any Multi-Drug Resistant Organisms: None Reported Past Surgical History: No Surgical Hx Reported Additional Past Surgical History / Comment(s): cataract surgery left eye Past Anesthesia/Blood Transfusion Reactions: No Reported Reaction Additional Past Anesthesia/Blood Transfusion Reaction / Comment(s): no hx of anesthesia or blood transfusions Smoking Status: Former smoker - Past Family History Mother Family Medical History: Hypertension Father Family Medical History: Cancer Additional Family Medical History / Comment(s): ca: esophagus Medications and Allergies Home Medications Medication Instructions Recorded Confirmed Type Multivitamins, Thera [Multivitamin 1 tab PO PC-BRKFST 01/06/16 07/27/23 History (formulary)] Ascorbic Acid [Vitamin C] 1,000 mg PO PC-BRKFST 03/09/23 07/27/23 History Cholecalciferol [Vitamin D3 (125 125 mcg PO PC-BRKFST 03/09/23 07/27/23 History Mcg = 5000 Iu)] Vitamin K2 100 mcg PO PC-BRKFST 03/09/23 07/27/23 History cod liver oiL [Cod Liver Oil] 1 cap PO PC-BRKFST 03/09/23 07/27/23 History lisinopriL [Zestril] 20 mg PO DAILY #30 tab 03/09/23 07/27/23 Rx Allergies Allergy/AdvReac Type Severity Reaction Status Date / Time No Known Allergies Allergy Verified 07/27/23 10:21 Surgical - Exam Vital Signs Temp Pulse Resp BP Pulse Ox 98.0 F 78 16 195/84 100 08/01/23 07:19 08/01/23 07:19 08/01/23 07:19 08/01/23 07:19 08/01/23 07:19
--- NOTE | 2023-08-01 08:19 | P.PCN ---
Date of Procedure: 08/01/23 Description of Procedure: PREOPERATIVE DIAGNOSIS: Colonoscopy screening. POSTOPERATIVE DIAGNOSIS: Colonoscopy screening. Sigmoid volvulus OPERATION: Colonoscopy to the cecum, ileocecal valve and appendiceal orifice. SURGEON: Katelyn Jones MD. ANESTHESIA: MAC. INDICATIONS: The patient is a 63-year-old female who presents for colonoscopy screening. Benefits and risks were described and informed consent was obtained. DESCRIPTION OF PROCEDURE: The patient had undergone Sutab prep. The patient had been brought into the operating room and laid in the left lateral decubitus position. After adequate intravenous sedation, the rectum was examined with 2% lidocaine jelly. No external hemorrhoids were encountered. The rectal tone was within normal limits. No lesions were palpated in the rectal vault. An pediatric Olympus colonoscope was advanced until the cecum, ileocecal valve were clearly viewed. The sigmoid colon was highly redundant with features of sigmoid volvulus without ischemic changes. Abdominal wall pressure was used to advance the scope. The prep was good. No scattered diverticulosis was encountered. No colonic polyps were found. No evidence of focal colitis was found. Retroflexion of the scope demonstrated grade 1 internal hemorrhoids without active bleeding or inflam mation. The colon was desufflated. The patient had tolerated the procedure well. Withdrawal time was over 6 minutes. FINDINGS: Aronchick preparation quality scale 2 (1-5) Internal hemorrhoids, grade 1 Highly redundant sigmoid colon with features of sigmoid volvulus without ischemic changes No external prolapsed hemorrhoids. No arteriovenous malformations. No adenomatous polyps. No focal colitis. RECOMMENDATIONS: Recommend colonic screening in 10 years, 2032 such as Cologuard Plan - Discharge Summary Discharge Rx Participant: No New Discharge Prescriptions: Continue Multivitamins, Thera [Multivitamin (formulary)] 1 tab PO PC-BRKFST Cholecalciferol [Vitamin D3 (125 Mcg = 5000 Iu)] 125 mcg PO PC-BRKFST cod liver oiL [Cod Liver Oil] 1 cap PO PC-BRKFST lisinopriL [Zestril] 20 mg PO DAILY #30 tab Vitamin K2 100 mcg PO PC-BRKFST Ascorbic Acid [Vitamin C] 1,000 mg PO PC-BRKFST Discharge Medication List Multivitamins, Thera [Multivitamin (formulary)] 1 tab PO PC-BRKFST 01/06/16 [History] Ascorbic Acid [Vitamin C] 1,000 mg PO PC-BRKFST 03/09/23 [History] Cholecalciferol [Vitamin D3 (125 Mcg = 5000 Iu)] 125 mcg PO PC-BRKFST 03/09/23 [History] Vitamin K2 100 mcg PO PC-BRKFST 03/09/23 [History] cod liver oiL [Cod Liver Oil] 1 cap PO PC-BRKFST 03/09/23 [History] lisinopriL [Zestril] 20 mg PO DAILY #30 tab 03/09/23 [Rx] Follow up Appointment(s)/Referral(s): Katelyn Jones MD [STAFF PHYSICIAN] - 08/16/23 9:30 am Patient Instructions/Handouts: Colonoscopy (DC) Activity/Diet/Wound Care/Special Instructions: Repeat colonoscopy 2032 Discharge Disposition: HOME SELF-CARE
[2023-08-01 08:33] VITALS: BP 140/84; PULSE 64
== END 2023-08-01 09:03 | disposition home or self-care (01) ==
LOC: ORWHC2ENDO 06:38
PROVIDERS: ATTEND Surgery Plastic and Reconstructive Surgery
DX: Z12.11 Encounter for screening for malignant neoplasm of colon (principal); K56.2 Volvulus; K64.0 First degree hemorrhoids; I10 Essential (primary) hypertension; Z87.891 Personal history of nicotine dependence; Z82.49 Family history of ischemic heart disease and other diseases of the circulatory system; Z79.899 Other long term (current) drug therapy
CPT/HCPCS: J2001; J2704; G0121

== ENCOUNTER → 2024-02-08 | Outpatient (CLI) | payer OTHER ==
--- NOTE | 2024-02-08 10:38 | MM ---
Reason for Exam: Follow-up at short interval from prior study. Last screening mammogram was performed 7 month(s) ago. Patient History: Menarche at age 13. First Full-Term at age 24. Postmenopausal. Risk Values: Paulina 5 year model risk: 1.4%. NCI Lifetime model risk: 6.2%. Prior Study Comparison: 06/30/2021 Bilateral Screening Mammogram, [facility]. 07/11/2023 Bilateral MG screening mammo w CAD, [facility]. 07/14/2023 Bilateral MG 3D work up w/cad [facility], [facility]. Tissue Density: Right: The breasts are heterogeneously dense, which may obscure small masses. Findings: Analyzed By CAD. The pattern is stable. No suspicious underlying right breast mammographic abnormality. No suspicious groups of microcalcifications, spiculated or lobular masses, architectural distortion or other secondary signs of malignancy are mammographically apparent. Overall Assessment: Benign, BI-RAD 2 Management: Screening Mammogram of both breasts in 6 months. A negative mammogram report should not preclude additional follow up of suspicious palpable abnormalities. Patient should continue monthly self breast exam. A clinical breast exam by your physician is recommended on an annual basis and results should be correlated with mammographic findings. Note on Paulina scores and lifetime risk: 1. A Paulina score greater than 3% is considered moderate risk. If this is the case, consider specialist referral to assess eligibility for a risk reducing agent. 2. If overall lifetime risk for the development of breast cancer is 20% or higher, the patient may qualify for future screening with alternating mammogram and breast MRI. Electronically signed and approved by: Jey Greenberg D.O. Radiologis
== END | disposition home or self-care (01) ==
LOC: RADMAMWWP 09:59
PROVIDERS: ATTEND Family Medicine
DX: R92.331 Mammographic heterogeneous density, right breast (principal); N63.10 Unspecified lump in the right breast, unspecified quadrant; Z78.0 Asymptomatic menopausal state
CPT/HCPCS: 77065; G0279; 77061

== ENCOUNTER → 2024-02-15 | Outpatient (CLI) | payer OTHER ==
--- NOTE | 2024-02-15 13:11 | US ---
EXAMINATION TYPE: US pelvic complete DATE OF EXAM: 02/15/2024 COMPARISON: NONE CLINICAL INDICATION: Female, 63 years old with history of R10.32 Left Lower Quad Pain; LLQ pain TECHNIQUE: Transabdominal (TA EXAM MEASUREMENTS: Uterus: 6.3 x 2.1 x 3.4 cm Endometrial Stripe: .5 cm Right Ovary: 1.6 x 1.0 x 1.5 cm Left Ovary: 1.9 x 1.2 x 1.4 cm 1. Uterus: Anteverted wnl 2. Endometrium: wnl 3. Right Ovary: wnl 4. Left Ovary: wnl 5. Bilateral Adnexa: wnl 6. Posterior cul-de-sac: wnl IMPRESSION: No sonographic abnormality identified.
== END | disposition home or self-care (01) ==
LOC: RADUSWWP 12:33
PROVIDERS: ATTEND Family Medicine
DX: R10.32 Left lower quadrant pain (principal)
CPT/HCPCS: 76856

== ENCOUNTER → 2024-04-17 | Outpatient (CLI) | payer OTHER ==
--- NOTE | 2024-04-17 11:26 | US ---
EXAMINATION TYPE: US kidneys/renal and bladder DATE OF EXAM: 04/17/2024 COMPARISON: NONE CLINICAL INDICATION: Female, 64 years old with history of R31.29 OTHER MICROSCOPIC HEMATURIA; hematur ia EXAM MEASUREMENTS: Right Kidney: 9.2 x 3.7 x 3.5 cm Left Kidney: 9.4 x 4.0 x 4.8 cm Right Kidney: Dilated renal pelvis, inf pole limited due to bowel gas Left Kidney: No hydronephrosis or masses seen, inf pole limited due to bowel gas Bladder: wnl Bilateral Jets seen: Yes No nephrolithiasis is seen. No masses are identified. The urinary bladder is anechoic. Bilateral u reteral jets are seen. IMPRESSION: Dilated right renal pelvis correlate for obstructive uropathy on the right.. Limited evaluation of th e left kidney no obstructive uropathy on the left.
== END | disposition home or self-care (01) ==
LOC: RADUSWWP 10:00
PROVIDERS: ATTEND Family Medicine
DX: R31.29 Other microscopic hematuria (principal); N13.8 Other obstructive and reflux uropathy
CPT/HCPCS: 76770

== ENCOUNTER 2024-06-08 19:32 | Outpatient (CLI) | payer OTHER ==
--- NOTE | 2024-07-09 12:22 | CONS ---
CONSULTATION REASON FOR CONSULTATION: 64-year-old lady has been evaluated in [facility] for possible obstructive sleep apnea-hypopnea syndrome. HISTORY OF PRESENT ILLNESS: Sleep-wake evaluation. The patient's usual sleep schedule from 10 p.m. to 7 to 7:30 a.m. Usually no problems with falling asleep. According to , the patient snores and has witnessed episodes of stopped breathing during the sleep. The patient wakes up from sleep up to 2 times with nocturia. No history of hypnagogic hallucinations, sleep paralysis, or cataplexy. [place] Sleepiness Scale is 3. The patient does not take any naps. PAST MEDICAL HISTORY: Positive for hypertension. PAST SURGICAL HISTORY: Left eye cataract surgery. MEDICATIONS: Lisinopril/hydrochlorothiazide 20/12.5 mg once a day. SOCIAL HISTORY: Negative for smoking. Alcohol consumption occasionally. FAMILY HISTORY: Esophageal cancer in her father. REVIEW OF SYSTEMS: Snoring, awakenings from sleep. No fevers. No double vision. No recent chest pain. No shortness of breath. No abdominal pain. No bleeding episodes. No blood in the urine. No seizure episodes. No pain in the chest or abdomen. No blood in the stool or urine. PHYSICAL EXAM: GENERAL: 64-year-old lady without distress. VITAL SIGNS: BP 147/85, HR 70, RR 16. Height 4 feet 11.5 inches, weight 103 pounds, body mass index 20.4. Temperature 97.8, oxygen saturation on room air 99%. HEENT: Oropharynx, retrognathia 2 to 3 mm, extremely low position of soft palate, Mallampati 4. NECK: 12.5 inches in circumference. LUNGS: Clear to percussion and to auscultation. Good air exchange. No wheezing or rhonchi. HEART: S1, S2 regular. No murmurs, gallops, or rubs. ABDOMEN: Soft and nontender. Bowel sounds are present. No organomegaly appreciated. EXTREMITIES: No clubbing or cyanosis. YIELD ANALYST: Awake, alert, and oriented X3. Cranial nerves 2 to 7 intact. There is no fasciculation or atrophy. noted. No focal deficits observed. IMPRESSION: 1. Snoring, witnessed episodes of stopped breathing during the sleep, extremely low position of soft palate, Mallampati 4, retrognathia several millimeters. Obstructive sleep apnea-hypopnea syndrome. 2. Hypertension, not on full control with 2 medications. 3. Status post left eye surgery for cataract. PLAN: 1. Polysomnography for evaluation of the patient's breathing during the sleep. 2. Following plan after reading sleep study. 3. Sleep hygiene with time in bed for at least 8 hours. 4. Precautions related to driving. No driving if feeling sleepiness. 5. Preferable position during the sleep on the side. Thank you very much for referring this patient for consultation. MMODL / IJN: [id number] /
--- NOTE | 2024-07-20 11:46 | SLS ---
SLEEP STUDY PROCEDURE: Polysomnogram. PROCEDURE DESCRIPTION: The standard montage for clinical polysomnography included the electroencephalogram, the electroculogram, the mentalis surface electromyography and lead II cardiography. The respiratory battery consisted of measurements of nasal/buccal airflow, pressure transducer measurements from nose, thoracic, and abdominal effort. Video monitoring has been done to check for any parasomnia events. Nocturnal oxyhemoglobin saturations were obtained by finger oximetry. RESULTS: Total sleep time 278 minutes. Recording time 397 minutes. Sleep efficiency decreased to 70%. Latency to sleep onset significantly prolonged to 43 minutes. Sleep architecture showed short stage N1 of sleep was only 2%, delta sleep was in good range 23.9%, and REM sleep slightly decreased to 15.6%. Respiratory channel showed 2 apneas and 0 hypopneas with total apnea-hypopnea index 0.4 and lowest oxygen level 93%. EMG showed 0.6 periodic limb movements per hour. IMPRESSION: 1. No significant respiratory abnormalities have been documented during the sleep study. 2. No significant periodic limb movements have been documented. 3. Heart rate in the range between 43 and 75, average 52 by computer calculation. PLAN: 1. Sleep hygiene with regular time in bed for at least 8 hours. 2. Precautions related to driving. No driving if feeling sleepiness. 3. I will see patient for followup visit to explain results of the test. Thank you very much for allowing me to participate in the management of your patient. Sincerely, Atif Farias MD, PhD, FAASM Diplomat of [place] [employer] Sleep Medicine Board of [place] [employer] [facility] [place] MMODL / JENNIFERN: [id number] /
== END 2024-06-09 05:51 | disposition home or self-care (01) ==
LOC: 3 N SLEEP 19:32
PROVIDERS: ATTEND Internal Medicine
CPT/HCPCS: 95810; 99211

== ENCOUNTER → 2024-08-09 | Outpatient (CLI) | payer OTHER ==
--- NOTE | 2024-08-10 08:36 | MM ---
Reason for Exam: Screening (asymptomatic). Last mammogram was performed 1 year(s) and 1 month(s) ago. Patient History: Menarche at age 13. First Full-Term at age 24. Postmenopausal. Risk Values: Paulina 5 year model risk: 1.4%. NCI Lifetime model risk: 6.0%. Prior Study Comparison: 07/11/2023 Bilateral MG screening mammo w CAD, [facility]. 07/14/2023 Bilateral MG 3D work up w/cad RENAN, [facility]. 02/08/2024 Right MG 3D diag mammo w/cad RT, [facility]. Tissue Density: There are scattered areas of fibroglandular density. Findings: Analyzed By CAD. Right breast: There is no suspicious group of microcalcifications or new suspicious mass. Benign-appearing calcifications right breast. Left breast: There is no suspicious group of microcalcifications or new suspicious mass. Overall Assessment: Benign, BI-RAD 2 Management: Screening Mammogram of both breasts in [address] [facility] will attempt to contact patient to return for supplemental views and ultrasound if indicated. Patient should continue monthly self-breast exams. A clinical breast exam by your physician is recommended on an annual basis. This exam should not preclude additional follow-up of suspicious palpable abnormalities. Note on Paulina scores and lifetime risk: 1. A Paulina score greater than 3% is considered moderate risk. If this is the case, consider specialist referral to assess eligibility for a risk reducing agent. 2. If overall lifetime risk for the development of breast cancer is 20% or higher, the patient may qualify for future screening with alternating mammogram and breast MRI. [facility], , 08/10/2024 8:33 AM. Electronically signed and approved by: Joe Rushing DO
== END | disposition home or self-care (01) ==
LOC: RADMAMWWP 08:29
PROVIDERS: ATTEND Obstetrics & Gynecology
DX: Z12.31 Encounter for screening mammogram for malignant neoplasm of breast
CPT/HCPCS: 77063; 77067